=== PATIENT | male | born 1965 | race African-American/Black ===

== ENCOUNTER 2017-06-11 13:12 | Emergency (ER) | payer MEDICAID, OTHER, SELFPAY ==
[2017-06-11] MEDS ORDERED: Acetaminophen 500 MG TAB ONE (14:07)
--- NOTE | 2017-06-11 16:09 | RAD ---
CHEST ONE VIEW: 06/11/17 HISTORY: Cough. FINDINGS: The cardiac silhouette and pulmonary vasculature are unremarkable. Mediastinum is midline. Subtle ir regular opacity projecting over the right upper chest has the appearance of a mild infiltrate. Left l tracee is clear. No evidence of pneumothorax. IMPRESSION: Subtle right suprahilar infiltrate. Clinical correlation regarding other signs and symptoms of right upper lobe pneumonitis is required. Please consider radiographic followup after medical treatment wit h PA and lateral views of the chest. POS: [facility]
== END 2017-06-11 15:17 | disposition home or self-care (01) ==
LOC: ERS 13:12
DX: J18.9 Pneumonia, unspecified organism (principal); F17.210 Nicotine dependence, cigarettes, uncomplicated
CPT/HCPCS: 71010; 87804; 99406

== ENCOUNTER 2018-09-12 14:22 | Emergency (ER) | payer OTHER ==
--- NOTE | 2018-09-12 15:30 | RAD ---
LEFT FOOT 3 VIEWS: Date: 09/12/18 HISTORY: Foot pain. FINDINGS: There are some minimal arthritic changes of the first metatarsophalangeal joint. Calcaneal spur at th e Achilles tendon insertion is noted. Pes planus deformity is present. No acute changes. IMPRESSION: No acute findings. POS: [facility]
== END 2018-09-12 16:00 | disposition home or self-care (01) ==
LOC: ERS 14:22
DX: L84 Corns and callosities (principal); F20.9 Schizophrenia, unspecified; F17.210 Nicotine dependence, cigarettes, uncomplicated

== ENCOUNTER 2019-05-23 15:48 | Emergency (ER) | payer OTHER ==
[2019-05-23 16:50] LABS: #Eosinphils 0.1 thou/uL (0.0-0.7); #Lymphocytes 1.1 thou/uL (1.20-3.40); #Monocytes 0.6 thou/uL (0.11-0.59); #Neutrophils 3.9 thou/uL (1.40-6.50); %Basophils 0.3 % (0.0-1.0); %Eosinophils 1.9 % (0.0-10.0); %Lymphocytes 18.8 % (21.0-51.0); %Monocytes 10.1 % (0.0-10.0); %Neutrophils 68.9 % (42.0-75.0); Hemoglobin 13.8 g/dL (14.0-18.0); Mean Corpuscular HGB CONC 32.6 g/dL (32.0-36.0); Mean Corpuscular Hemoglobin 29.3 pg (27.0-31.0); Mean Platelet Volume 8.7 fL (7.4-10.4); Platelet Count 153 thou/uL (130-400); RBC Distribution Width 13.1 % (11.5-14.5); Red Blood Cell (RBC) Count 4.71 mill/uL (4.70-6.10); White Blood Cell (WBC) Count 5.7 thou/uL (4.8-10.8)
[2019-05-23 17:12] LABS: ALT (SGPT) 14 U/L (8-55); AST (SGOT) 26 U/L (5-34); Albumin 4.1 g/dL (3.5-5.0); Alkaline Phosphatase 67 U/L (40-110); Anion Gap 11 mmol/L (10-20); BUN (Urea Nitrogen) 11 mg/dL (8.4-25.7); Bilirubin, Total 0.5 mg/dL (0.2-1.2); Calc. Creatinine Clearance 0 mL/min (70-130); Calcium 8.6 mg/dL (7.8-10.44); Carbon Dioxide 28 mmol/L (22-29); Chloride 105 mmol/L (98-107); Estimated GFR-MDRD 69; Globulin 2.7 g/dL (2.4-3.5); Glucose 94 mg/dL (70-105); Lipase 46 U/L (8-78); Protein, Total 6.8 g/dL (6.0-8.3); Sodium 141 mmol/L (136-145)
[2019-05-23 17:18] LABS: Potassium 2.8 mmol/L (3.5-5.1)
== END 2019-05-23 18:47 | disposition home or self-care (01) ==
LOC: ERS 15:48
DX: A08.4 Viral intestinal infection, unspecified (principal); F20.9 Schizophrenia, unspecified; F17.290 Nicotine dependence, other tobacco product, uncomplicated
CPT/HCPCS: 36415; 80053; 83690; 85025; 99284

== ENCOUNTER 2020-10-31 14:53 | Observation (INO) | payer OTHER ==
[~2020-10-31 14:53] MED LIST: Iopamidol-370 76% 500 ML 1 ML ONE
[2020-10-31 15:46] LABS: #Basophils 0.1 thou/uL (0.0-0.2); #Eosinphils 0.2 thou/uL (0.0-0.7); #Lymphocytes 1.8 thou/uL (1.20-3.40); #Monocytes 0.5 thou/uL (0.11-0.59); #Neutrophils 4.9 thou/uL (1.40-6.50); %Basophils 0.7 % (0.0-1.0); %Eosinophils 3.2 % (0.0-10.0); %Lymphocytes 23.4 % (21.0-51.0); %Monocytes 6.9 % (0.0-10.0); %Neutrophils 65.7 % (42.0-75.0); Hemoglobin 13.1 g/dL (14.0-18.0); Mean Corpuscular HGB CONC 33.7 g/dL (32.0-36.0); Mean Corpuscular Hemoglobin 31.2 pg (27.0-31.0); Mean Corpuscular Volume 92.5 fL (78.0-98.0); Mean Platelet Volume 8.8 fL (7.4-10.4); Platelet Count 156 thou/uL (130-400); RBC Distribution Width 12.8 % (11.5-14.5); Red Blood Cell (RBC) Count 4.18 mill/uL (4.70-6.10); White Blood Cell (WBC) Count 7.5 thou/uL (4.8-10.8)
[2020-10-31] MEDS ORDERED: Morphine 4 MG/ML VIAL ONE (15:58)
[2020-10-31] MEDS ORDERED: Ketorolac Tromethamine 30 MG/ML VIAL ONE (15:58)
[2020-10-31 16:07] LABS: ALT (SGPT) 15 U/L (8-55); AST (SGOT) 24 U/L (5-34); Albumin 3.8 g/dL (3.5-5.0); Alkaline Phosphatase 68 U/L (40-110); Anion Gap 9 mmol/L (10-20); BUN (Urea Nitrogen) 14 mg/dL (8.4-25.7); Bilirubin, Total 0.2 mg/dL (0.2-1.2); Calc. Creatinine Clearance 0 mL/min (70-130); Carbon Dioxide 25 mmol/L (22-29); Chloride 110 mmol/L (98-107); Globulin 2.7 g/dL (2.4-3.5); Glucose 116 mg/dL (70-105); Lipase 55 U/L (8-78); Potassium 3.9 mmol/L (3.5-5.1); Protein, Total 6.5 g/dL (6.0-8.3); Sodium 140 mmol/L (136-145)
[2020-10-31] MEDS ORDERED: Aspirin Chewable 81 MG TAB ONE (17:07)
[2020-10-31] MEDS ORDERED: Ondansetron PF 4 MG/2 ML Vial IVP PRN (18:18)
[2020-10-31] MEDS ORDERED: Ondansetron ODT 4 MG TAB PO PRN (18:18)
[2020-10-31] MEDS ORDERED: Acetaminophen 325 MG TAB PO PRN (18:18)
[2020-10-31] MEDS ORDERED: Nicotine 14 MG PATCH TD PRN (18:18)
[2020-10-31 19:04] LABS: Hemoglobin A1c 5.2 % (4.0-6.0)
[2020-10-31 19:07] LABS: Troponin I Less than 0.010 ng/mL (< 0.028)
[2020-10-31] MEDS ORDERED: hydrALAZINE 20 MG/ML VIAL SLOW IVP PRN (19:35)
[2020-10-31 22:12] LABS: Troponin I Less than 0.010 ng/mL (< 0.028)
[2020-10-31 22:33] VITALS: BMI 25.0
[2020-10-31] MEDS: Melatonin 3 MG TAB PO PRN (22:59)
[2020-10-31] MEDS: Atorvastatin Calcium 40 MG TAB PO SCH (22:59)
[2020-11-01 01:01] LABS: SARS-CoV-2 NAA Rapid Test Not Detected (NotDetected)
[2020-11-01] MEDS ORDERED: diphenhydrAMINE 25 MG CAP PO PRN (04:22)
[2020-11-01 05:56] LABS: #Basophils 0.1 thou/uL (0.0-0.2); #Eosinphils 0.2 thou/uL (0.0-0.7); #Lymphocytes 2.2 thou/uL (1.20-3.40); #Monocytes 0.7 thou/uL (0.11-0.59); #Neutrophils 4.1 thou/uL (1.40-6.50); %Basophils 0.9 % (0.0-1.0); %Eosinophils 3.2 % (0.0-10.0); %Lymphocytes 29.9 % (21.0-51.0); %Monocytes 9.8 % (0.0-10.0); %Neutrophils 56.3 % (42.0-75.0); Hemoglobin 12.3 g/dL (14.0-18.0); Mean Corpuscular HGB CONC 32.4 g/dL (32.0-36.0); Mean Corpuscular Hemoglobin 30.2 pg (27.0-31.0); Mean Corpuscular Volume 93.3 fL (78.0-98.0); Mean Platelet Volume 8.9 fL (7.4-10.4); Platelet Count 148 thou/uL (130-400); RBC Distribution Width 12.8 % (11.5-14.5); Red Blood Cell (RBC) Count 4.06 mill/uL (4.70-6.10); White Blood Cell (WBC) Count 7.3 thou/uL (4.8-10.8)
[2020-11-01 06:16] LABS: Anion Gap 10 mmol/L (10-20); BUN (Urea Nitrogen) 11 mg/dL (8.4-25.7); Calc. Creatinine Clearance 88 mL/min (70-130); Calcium 8.3 mg/dL (7.8-10.44); Carbon Dioxide 25 mmol/L (22-29); Cardiac Risk 2.9 (Less than 4.5); Chloride 109 mmol/L (98-107); Cholesterol 119 mg/dl (< 200 Desired); Glucose 85 mg/dL (70-105); HDL Cholesterol 41 mg/dL (>60 Neg Risk); LDL Cholesterol, Calculated 69 mg/dL; Potassium 3.8 mmol/L (3.5-5.1); Sodium 140 mmol/L (136-145); Triglycerides 43 mg/dL (Less than 150)
[2020-11-01] MEDS: Aspirin 81 mg Enteric Coated Tablet PO SCH (10:01)
[2020-11-01] MEDS: Enoxaparin Sodium 40 MG/0.4 ML SYRINGE SC SCH (10:05)
[2020-11-01] MEDS: Amlodipine 5 MG TAB PO SCH ×2 (10:06→10:29)
[2020-11-01] MEDS: Methocarbamol 500 MG TAB PO PRN ×2 (10:06→17:02)
[2020-11-01] MEDS ORDERED: Ketorolac Tromethamine 30 MG/ML VIAL IVP SCH (11:00)
[2020-11-01] MEDS ORDERED: hydrOXYzine 25 MG TAB PO PRN (13:12)
[2020-11-01] MEDS ORDERED: FLUoxetine HCl 10 MG CAP PO SCH ×2 (17:00)
[2020-11-01] MEDS ORDERED: Amlodipine 5 MG TAB PO SCH (17:40)
[2020-11-01] MEDS: Haloperidol 5 MG TAB PO SCH (21:24)
[2020-11-01] MEDS: Atorvastatin Calcium 40 MG TAB PO SCH (21:24)
[2020-11-01] MEDS: Benztropine 1 MG TAB PO SCH (21:25)
[2020-11-01] MEDS: Melatonin 3 MG TAB PO PRN (23:47)
[2020-11-02] MEDS ORDERED: FLUoxetine HCl 10 MG CAP PO SCH ×2 (07:30→17:00)
[2020-11-02 07:36] LABS: Phosphorus 2.5 mg/dL (2.3-4.7)
[2020-11-02 07:40] LABS: Anion Gap 9 mmol/L (10-20); BUN (Urea Nitrogen) 14 mg/dL (8.4-25.7); Calc. Creatinine Clearance 84 mL/min (70-130); Calcium 8.5 mg/dL (7.8-10.44); Carbon Dioxide 25 mmol/L (22-29); Chloride 109 mmol/L (98-107); Glucose 82 mg/dL (70-105); Magnesium 1.9 mg/dL (1.6-2.6); Sodium 139 mmol/L (136-145)
[2020-11-02] MEDS: Benztropine 1 MG TAB PO SCH (08:17)
[2020-11-02] MEDS: Aspirin 81 mg Enteric Coated Tablet PO SCH (08:17)
[2020-11-02] MEDS: Haloperidol 5 MG TAB PO SCH (08:18)
[2020-11-02] MEDS: Enoxaparin Sodium 40 MG/0.4 ML SYRINGE SC SCH (08:19)
[2020-11-02 12:14] VITALS: BP 129/61; TEMP 98
[2020-11-02] MEDS ORDERED: Regadenoson 0.4 MG/5 ML SYRINGE ONE (12:23)
== END 2020-11-02 13:48 | disposition left against medical advice (07) ==
LOC: ERS 14:53 → 2SW 17:17
PROVIDERS: ADMIT Family Medicine; ATTEND Family Medicine
DX: R07.89 Other chest pain (principal); R00.1 Bradycardia, unspecified; D64.9 Anemia, unspecified; I10 Essential (primary) hypertension; K57.30 Diverticulosis of large intestine without perforation or abscess without bleeding; M19.90 Unspecified osteoarthritis, unspecified site; N52.9 Male erectile dysfunction, unspecified; F17.290 Nicotine dependence, other tobacco product, uncomplicated; M25.512 Pain in left shoulder; R01.1 Cardiac murmur, unspecified; I08.3 Combined rheumatic disorders of mitral, aortic and tricuspid valves; Z53.29 Procedure and treatment not carried out because of patient's decision for other reasons; Z79.899 Other long term (current) drug therapy; Z89.421 Acquired absence of other right toe(s); Z20.822 Contact with and (suspected) exposure to COVID-19
CPT/HCPCS: 36415; 71275; 74174; 78451; 78452; 80048; 80053; 80061; 83036; 83690; 83735; 84100; 84443; 84484; 85025; 93005; 93017; 93306; 96374; 96375; 96376; A9500; G0378; J1885; J2270; J2785; Q0163; Q9967; U0002; U0005

== ENCOUNTER 2021-03-09 10:13 | Emergency (ER) | payer OTHER ==
[2021-03-09 11:38] LABS: #Basophils 0.1 thou/uL (0.0-0.2); #Eosinphils 0.2 thou/uL (0.0-0.7); #Lymphocytes 1.7 thou/uL (1.20-3.40); #Monocytes 0.6 thou/uL (0.11-0.59); #Neutrophils 5.2 thou/uL (1.40-6.50); %Basophils 0.8 % (0.0-1.0); %Eosinophils 2.2 % (0.0-10.0); %Lymphocytes 22.2 % (21.0-51.0); %Monocytes 7.4 % (0.0-10.0); %Neutrophils 67.4 % (42.0-75.0); Hemoglobin 12.7 g/dL (14.0-18.0); Mean Corpuscular HGB CONC 31.1 g/dL (32.0-36.0); Mean Corpuscular Volume 93.4 fL (78.0-98.0); Mean Platelet Volume 8.4 fL (7.4-10.4); Platelet Count 153 thou/uL (130-400); RBC Distribution Width 12.6 % (11.5-14.5); Red Blood Cell (RBC) Count 4.39 mill/uL (4.70-6.10); White Blood Cell (WBC) Count 7.7 thou/uL (4.8-10.8)
[2021-03-09 12:00] LABS: ALT (SGPT) 13 U/L (8-55); AST (SGOT) 22 U/L (5-34); Albumin 3.6 g/dL (3.5-5.0); Alkaline Phosphatase 58 U/L (40-110); Anion Gap 9 mmol/L (10-20); BUN (Urea Nitrogen) 15 mg/dL (8.4-25.7); Bilirubin, Total 0.3 mg/dL (0.2-1.2); Calc. Creatinine Clearance 0 mL/min (70-130); Calcium 8.9 mg/dL (7.8-10.44); Carbon Dioxide 27 mmol/L (22-29); Chloride 111 mmol/L (98-107); Globulin 2.5 g/dL (2.4-3.5); Glucose 97 mg/dL (70-105); Potassium 3.9 mmol/L (3.5-5.1); Protein, Total 6.1 g/dL (6.0-8.3); Sodium 143 mmol/L (136-145)
== END 2021-03-09 12:58 | disposition home or self-care (01) ==
LOC: ERS 10:13
DX: K92.1 Melena (principal); I10 Essential (primary) hypertension; F17.290 Nicotine dependence, other tobacco product, uncomplicated
CPT/HCPCS: 36415; 80053; 82274; 85025; 99283

== ENCOUNTER 2021-05-11 13:21 | Emergency (ER) | payer OTHER | END 2021-05-11 14:43 | disposition home or self-care (01) | LOC: ERS 13:21 | DX: S16.1XXA Strain of muscle, fascia and tendon at neck level, initial encounter (principal); I10 Essential (primary) hypertension; F17.290 Nicotine dependence, other tobacco product, uncomplicated; Z79.899 Other long term (current) drug therapy; X58.XXXA Exposure to other specified factors, initial encounter | CPT/HCPCS: 99283 ==

== ENCOUNTER 2021-07-06 18:03 | Emergency (ER) | payer OTHER ==
[2021-07-06] MEDS ORDERED: Acetaminophen 500 MG TAB ONE (19:19)
== END 2021-07-06 19:57 | disposition home or self-care (01) ==
LOC: ERS 18:03
DX: S16.1XXA Strain of muscle, fascia and tendon at neck level, initial encounter (principal); S29.011A Strain of muscle and tendon of front wall of thorax, initial encounter; I10 Essential (primary) hypertension; Z79.899 Other long term (current) drug therapy; V89.2XXA Person injured in unspecified motor-vehicle accident, traffic, initial encounter
CPT/HCPCS: 71046

== ENCOUNTER 2021-11-13 06:58 | Emergency (ER) | payer OTHER ==
[2021-11-13] MEDS ORDERED: Boostrix 0.5 ML (Tdap) VIAL ONE (07:32)
== END 2021-11-13 09:05 | disposition home or self-care (01) ==
LOC: ERS 06:58
DX: S63.302A Traumatic rupture of unspecified ligament of left wrist, initial encounter (principal); I10 Essential (primary) hypertension; F17.290 Nicotine dependence, other tobacco product, uncomplicated; Z23 Encounter for immunization; W22.8XXA Striking against or struck by other objects, initial encounter
CPT/HCPCS: 90471; 90715

== ENCOUNTER 2022-01-10 09:27 | Observation (INO) | payer OTHER ==
[2022-01-10 10:02] LABS: #Eosinphils 0.2 thou/uL (0.0-0.7); #Lymphocytes 1.6 thou/uL (1.20-3.40); #Monocytes 0.6 thou/uL (0.11-0.59); #Neutrophils 5.7 thou/uL (1.40-6.50); %Basophils 0.2 % (0.0-1.0); %Eosinophils 2.2 % (0.0-10.0); %Lymphocytes 19.9 % (21.0-51.0); %Monocytes 7.7 % (0.0-10.0); %Neutrophils 70.1 % (42.0-75.0); Hemoglobin 13.1 g/dL (14.0-18.0); Mean Corpuscular HGB CONC 32.1 g/dL (32.0-36.0); Mean Corpuscular Hemoglobin 29.8 pg (27.0-31.0); Mean Corpuscular Volume 92.8 fL (78.0-98.0); Mean Platelet Volume 8.4 fL (7.4-10.4); Platelet Count 165 thou/uL (130-400); RBC Distribution Width 12.7 % (11.5-14.5); White Blood Cell (WBC) Count 8.1 thou/uL (4.8-10.8)
[2022-01-10 10:24] LABS: ALT (SGPT) 12 U/L (8-55); AST (SGOT) 24 U/L (5-34); Albumin 3.7 g/dL (3.5-5.0); Alkaline Phosphatase 61 U/L (40-110); Anion Gap 9 mmol/L (10-20); BUN (Urea Nitrogen) 13 mg/dL (8.4-25.7); Bilirubin, Total 0.6 mg/dL (0.2-1.2); Calc. Creatinine Clearance 0 mL/min (70-130); Calcium 8.9 mg/dL (7.8-10.44); Carbon Dioxide 28 mmol/L (22-29); Chloride 106 mmol/L (98-107); Estimated GFR 78; Globulin 2.7 g/dL (2.4-3.5); Glucose 79 mg/dL (70-105); Potassium 3.7 mmol/L (3.5-5.1); Protein, Total 6.4 g/dL (6.0-8.3); Sodium 139 mmol/L (136-145)
[2022-01-10] MEDS ORDERED: Aspirin Chewable 81 MG TAB ONE (10:51)
[2022-01-10] MEDS ORDERED: Nitroglycerin 2% Ointment 1 INCH/1 GM Packet ONE (11:00)
[2022-01-10 11:26] LABS: Acetaminophen Less than 10.0 mcg/mL (10.0-30.0); Alcohol Less than 10 mg/dL (Less than 10); CK (CPK) 400 U/L (30-200); Salicylate Less than 8.0 mg/dL (15.0-30.0)
[2022-01-10 11:34] LABS: Bilirubin Negative (Negative); Blood, Urine Negative (Negative); Clarity Clear (Clear); Glucose, Urine (Dipstick) Normal (Negative); Ketone, Urine Negative (Negative); Leukocyte Negative Leu/uL (Negative); Nitrite Negative (Negative); Protein, Urine (Dipstick) Negative (Neg-Trace); Specific Gravity, Urine 1.021 (1.002-1.036); Urobilinogen Normal mg/dL (Less than 2); pH, Urine 5.5 (5.0-9.0)
[2022-01-10 11:40] LABS: Amphetamine Not Detected (NotDetected); Barbiturates Screen Not Detected (NotDetected); Benzodiazepine Screen Not Detected (NotDetected); Cocaine Metabolite Screen Not Detected (NotDetected); Methadone Not Detected (NotDetected); Methamphetamine Not Detected (NotDetected); Opiate Screen Not Detected (NotDetected); Oxycodone Screen Not Detected (NotDetected); Phencyclidine (PCP) Not Detected (NotDetected); THC/Cannabinoid Screen Not Detected (NotDetected); Tricyclic Screen Not Detected (NotDetected)
[2022-01-10] MEDS ORDERED: Acetaminophen 325 MG TAB PO PRN (12:57)
[2022-01-10 13:03] VITALS: BMI 25.2
[2022-01-10 13:17] LABS: Troponin I Less than 0.010 ng/mL (< 0.028)
[2022-01-10] MEDS ORDERED: Nicotine 14 MG PATCH TD SCH (14:00)
[2022-01-10] MEDS ORDERED: Lidocaine 5% Patch TD SCH (14:00)
[2022-01-10] MEDS ORDERED: hydrALAZINE 20 MG/ML VIAL SLOW IVP PRN (14:05)
[2022-01-10 14:18] LABS: Magnesium 1.9 mg/dL (1.6-2.6); Phosphorus 2.8 mg/dL (2.3-4.7)
[2022-01-10] MEDS ORDERED: Enoxaparin Sodium 40 MG/0.4 ML SYRINGE SC SCH (21:00)
[2022-01-10 21:50] LABS: Troponin I 0.012 ng/mL (< 0.028)
[2022-01-11] MEDS ORDERED: Transdermal Patch Removal TOP SCH (02:00)
[2022-01-11 07:11] LABS: #Eosinphils 0.2 thou/uL (0.0-0.7); #Monocytes 0.5 thou/uL (0.11-0.59); #Neutrophils 3.9 thou/uL (1.40-6.50); %Basophils 0.7 % (0.0-1.0); %Eosinophils 3.2 % (0.0-10.0); %Lymphocytes 30.1 % (21.0-51.0); %Monocytes 7.3 % (0.0-10.0); %Neutrophils 58.8 % (42.0-75.0); Hemoglobin 13.1 g/dL (14.0-18.0); Mean Corpuscular HGB CONC 31.2 g/dL (32.0-36.0); Mean Corpuscular Hemoglobin 29.4 pg (27.0-31.0); Mean Corpuscular Volume 94.4 fL (78.0-98.0); Mean Platelet Volume 8.9 fL (7.4-10.4); Platelet Count 150 thou/uL (130-400); RBC Distribution Width 12.9 % (11.5-14.5); Red Blood Cell (RBC) Count 4.44 mill/uL (4.70-6.10); White Blood Cell (WBC) Count 6.6 thou/uL (4.8-10.8)
[2022-01-11 07:18] LABS: Anion Gap 9 mmol/L (10-20); BUN (Urea Nitrogen) 12 mg/dL (8.4-25.7); Calc. Creatinine Clearance 79 mL/min (70-130); Calcium 8.7 mg/dL (7.8-10.44); Carbon Dioxide 28 mmol/L (22-29); Chloride 108 mmol/L (98-107); Estimated GFR 85; Glucose 88 mg/dL (70-105); Magnesium 2.1 mg/dL (1.6-2.6); Phosphorus 2.5 mg/dL (2.3-4.7); Potassium 3.5 mmol/L (3.5-5.1); Sodium 141 mmol/L (136-145)
[2022-01-11 07:52] VITALS: BP 155/81; TEMP 97.8
[2022-01-11] MEDS ORDERED: Amlodipine 10 MG TAB PO SCH (09:00)
[2022-01-11] MEDS ORDERED: PHOS-NAK 1 PKT PACK PO SCH (09:00)
[2022-01-11] MEDS ORDERED: Aspirin Chewable 81 MG TAB PO SCH (09:00)
[2022-01-11] MEDS ORDERED: Atorvastatin Calcium 40 MG TAB PO SCH (09:00)
== END 2022-01-11 10:13 | disposition left against medical advice (07) ==
LOC: ERS 09:27 → 2SW 12:21
PROVIDERS: ADMIT Family Medicine; ATTEND Family Medicine
DX: R07.89 Other chest pain (principal); R00.1 Bradycardia, unspecified; I47.2 Ventricular tachycardia; I10 Essential (primary) hypertension; E78.5 Hyperlipidemia, unspecified; F17.290 Nicotine dependence, other tobacco product, uncomplicated; K57.30 Diverticulosis of large intestine without perforation or abscess without bleeding; F20.9 Schizophrenia, unspecified; M19.90 Unspecified osteoarthritis, unspecified site; R79.89 Other specified abnormal findings of blood chemistry; Z53.29 Procedure and treatment not carried out because of patient's decision for other reasons; Z79.82 Long term (current) use of aspirin; Z79.899 Other long term (current) drug therapy; Z20.822 Contact with and (suspected) exposure to COVID-19
CPT/HCPCS: 36415; 71045; 80048; 80053; 80306; 80307; 81003; 82550; 83735; 84100; 84443; 84484; 85025; 93005; 94760; 96372; 96374; G0378; J1650; J3475; J3490; U0003; U0005

== ENCOUNTER 2022-02-22 08:38 | Emergency (ER) | payer OTHER | END 2022-02-22 09:09 | disposition left against medical advice (07) | LOC: ERS 08:38 | DX: Z53.21 Procedure and treatment not carried out due to patient leaving prior to being seen by health care provider (principal) ==

== ENCOUNTER 2023-07-31 22:04 | Emergency (ER) | payer OTHER ==
[2023-07-31] MEDS ORDERED: Acetaminophen 500 MG TAB ONE (22:15)
[2023-07-31] MEDS ORDERED: Metoclopramide HCl 10 MG (2 mL) VIAL ONE (22:15)
[2023-07-31] MEDS ORDERED: diphenhydrAMINE 50 MG/ML VIAL ONE (22:15)
[2023-07-31 22:28] LABS: #Eosinphils 0.1 thou/uL (0.0-0.7); #Monocytes 0.6 thou/uL (0.11-0.59); #Neutrophils 5.2 thou/uL (1.40-6.50); %Basophils 0.3 % (0.0-1.0); %Eosinophils 1.7 % (0.0-10.0); %Lymphocytes 24.6 % (21.0-51.0); %Monocytes 7.3 % (0.0-10.0); %Neutrophils 65.8 % (42.0-75.0); Hematocrit 37.7 % (42.0-52.0); Hemoglobin 12.4 g/dL (14.0-18.0); Mean Corpuscular HGB CONC 32.9 g/dL (32.0-36.0); Mean Corpuscular Hemoglobin 29.5 pg (27.0-31.0); Mean Corpuscular Volume 89.8 fl (78.0-98.0); Mean Platelet Volume 10.6 fL (7.4-10.4); Platelet Count 193 10x3/uL (130-400); RBC Distribution Width 13.8 % (11.5-14.5); White Blood Cell (WBC) Count 7.9 10x3/uL (4.8-10.8)
[2023-07-31 22:52] LABS: Anion Gap 12 mmol/L (10-20); BUN (Urea Nitrogen) 15 mg/dL (8.4-25.7); Calc. Creatinine Clearance 0 mL/min (70-130); Carbon Dioxide 26 mmol/L (22-29); Chloride 107 mmol/L (98-107); Sodium 141 mmol/L (136-145)
[2023-07-31 22:53] LABS: ALT (SGPT) 11 U/L (8-55); AST (SGOT) 24 U/L (5-34); Albumin 4.1 g/dL (3.5-5.0); Alkaline Phosphatase 61 U/L (40-110); Bilirubin, Total 0.3 mg/dL (0.2-1.2); Estimated GFR 86; Globulin 2.8 g/dL (2.4-3.5); Glucose 107 mg/dL (70-105); Magnesium 2.1 mg/dL (1.6-2.6); Protein, Total 6.9 g/dL (6.0-8.3)
[2023-07-31] MEDS ORDERED: Ketorolac Tromethamine 30 MG (1 mL) VIAL ONE (22:53)
== END 2023-08-01 | disposition home or self-care (01) ==
LOC: ERS 22:04
DX: R51.9 Headache, unspecified (principal); F17.290 Nicotine dependence, other tobacco product, uncomplicated
CPT/HCPCS: 70450; 80053; 83735; 85025; 96365; 96375; J1200; J1885; J2765

== ENCOUNTER 2024-03-30 09:03 | Emergency (ER) | payer OTHER ==
[2024-03-30] MEDS ORDERED: Fluorescein Opthalmic Strip ONE (10:05)
[2024-03-30] MEDS ORDERED: Proparacaine 0.5% Opth 15 ML BOT ONE (10:05)
== END 2024-03-30 11:00 | disposition home or self-care (01) ==
LOC: ERS 09:03
DX: S05.02XA Injury of conjunctiva and corneal abrasion without foreign body, left eye, initial encounter (principal); I10 Essential (primary) hypertension; F17.210 Nicotine dependence, cigarettes, uncomplicated; F17.290 Nicotine dependence, other tobacco product, uncomplicated; W22.09XA Striking against other stationary object, initial encounter; Z55.6 Problems related to health literacy
CPT/HCPCS: 99282

== ENCOUNTER 2025-03-01 21:08 | Emergency (ER) | payer OTHER ==
[2025-03-01] MEDS ORDERED: Lidocaine 1% PF 5 ML VIAL ONE (22:26)
[2025-03-01] MEDS ORDERED: Boostrix 0.5 ML (Tdap) VIAL (>/=7 yrs of age) ONE (22:26)
[2025-03-01] MEDS ORDERED: Bacitracin 1 PK ONE (23:03)
== END 2025-03-01 23:29 | disposition home or self-care (01) ==
LOC: ERS 21:08
DX: S61.012A Laceration without foreign body of left thumb without damage to nail, initial encounter (principal); I10 Essential (primary) hypertension; F17.210 Nicotine dependence, cigarettes, uncomplicated; F17.290 Nicotine dependence, other tobacco product, uncomplicated; W26.8XXA Contact with other sharp object(s), not elsewhere classified, initial encounter
CPT/HCPCS: 90471; 90715; 96372